=== PATIENT | female | born 1950 | race African-American/Black ===

== ENCOUNTER 2019-06-08 18:34 | Inpatient (IN) | payer MEDICARE, MEDICAID ==
[~2019-06-08] VITALS: Ht 149.9 cm; Wt 56.2 kg
--- NOTE | 2019-06-08 18:30 | NUR ---
Admitted from [facility] for cervical decompression and cervical stenosis. In stable condition with pain rated as 9/10 over neck area, informed Dr Rosa Gregory said OK to continue Oxycodone 10 mg 4HPRN. Patient not in any form of distress. Oriented to unit and therapy. Dr Kathrin Villalpando informed about admission and ordered to continue previous medications and ordered BMP and CBC.
[2019-06-08] MEDS ORDERED: MAGNESIUM HYDROXIDE 30 ML LIQUID UDC PO PRN (19:00)
[2019-06-08] MEDS ORDERED: Z GUARD REMEDY PASTE 57 GM TUBE TOP PRN (19:00)
[2019-06-08] MEDS ORDERED: ASCO500T10 PO (19:21)
[2019-06-08] MEDS ORDERED: DIFL5DRO OP (19:21)
[2019-06-08] MEDS ORDERED: FOLI1TAB16 PO (19:21)
[2019-06-08] MEDS ORDERED: FLUT9.9S NS (19:21)
[2019-06-08] MEDS ORDERED: MIRT15TA7 PO (19:21)
[2019-06-08] MEDS ORDERED: LATA2.5D2 RIGHTEYE (19:21)
[2019-06-08] MEDS ORDERED: HYDR-4354 PO (19:21)
[2019-06-08] MEDS ORDERED: LIDO30AD10 TD (19:21)
[2019-06-08] MEDS ORDERED: METH500T6 PO (19:21)
[2019-06-08] MEDS ORDERED: OFLO5DRO3 RIGHTEYE (19:21)
[2019-06-08] MEDS ORDERED: ALEN70TA3 PO (19:21)
[2019-06-08] MEDS ORDERED: HYDR200T81 PO (19:21)
[2019-06-08] MEDS ORDERED: METH5TAB6 PO (19:21)
[2019-06-08] MEDS ORDERED: BISA-79 PO (19:21)
[2019-06-08] MEDS ORDERED: SOTA80TA26 PO (19:21)
[2019-06-08] MEDS ORDERED: DIAZ2TAB3 PO (19:21)
[2019-06-08] MEDS ORDERED: BUTA-247 PO (19:21)
[2019-06-08] MEDS ORDERED: ALBU18HF2 INH (19:21)
[2019-06-08] MEDS ORDERED: AZEL6DRO5 RIGHTEYE (19:22)
[2019-06-08] MEDS ORDERED: OXYCODONE/APAP 5-325 MG TABLET PO PRN (19:30)
[2019-06-08 20:10] VITALS: BP 93/51
[2019-06-08] MEDS ORDERED: HYDROCODONE/APAP 10-325 MG TABLET PO PRN (20:15)
[2019-06-08] MEDS: OXYCODONE/APAP 5-325 MG TABLET PO PRN (20:54)
[2019-06-09] MEDS ORDERED: MORPHINE SULFATE 2 MG/1 ML DISP.SYRIN IM PRN
--- NOTE | 2019-06-09 04:03 | NUR ---
admitted from [facility] a 68 year old with admitting diagnosis of C5-T3 partial fusion with back decompression. AAOx4. Cervical collar intact. at bedside. Needs attended. VSS. complained of neck pain/back pain 09/07. Percocet 2 tabs given as ordered. will monitor patient for relief. OOB to the BR with walker with supervision.Voiding well. Patient still complains of pain, says Percocet not working. Dr Villalpando(sharepoint solutions architect) notified. Morphine 2mg IM ordered given as directed. Explained to patient that morphine 2mg IM is one time dose only. Patient understood and agreeable to it. Needs attended.
[2019-06-09 05:12] VITALS: BP 103/55
[2019-06-09] MEDS: OXYCODONE/APAP 5-325 MG TABLET PO PRN (06:31)
[2019-06-09 07:09] LABS: BASOPHILS # (AUTO) 0.1 K/uL (0.0-8.0); BASOPHILS % (AUTO) 1.1 % (0.0-2.0); EOSINOPHILS # (AUTO) 0.1 K/uL (0.0-0.7); EOSINOPHILS % (AUTO) 1.9 % (0.0-7.0); HEMATOCRIT 34.6 % (31.2-41.9); HEMOGLOBIN 10.8 g/dL (10.9-14.3); LYMPHOCYTES # (AUTO) 1.7 K/uL (20.0-40.0); LYMPHOCYTES % (AUTO) 22.9 % (20.5-51.5); MEAN CORPUSCULAR HGB CONC 31 g/dL (32.3-35.6); MEAN CORPUSCULAR VOLUME 79.8 fL (75.5-95.3); MONOCYTES % (AUTO) 13.1 % (0.0-11.0); NEUTROPHILS # (AUTO) 4.6 K/uL (1.8-8.9); PLATELET COUNT (AUTO) 133 K/uL (179-408); RED BLOOD CELL COUNT(AUTO) 4.34 MIL/uL (3.63-4.92); WHITE BLOOD COUNT (AUTO) 7.6 K/uL (3.8-11.8)
[2019-06-09 07:13] LABS: CREATININE 0.8 mg/dL (0.6-1.3); POTASSIUM 4.3 mmol/L (3.5-5.1)
[2019-06-09] MEDS ORDERED: DIAZEPAM 2 MG TABLET PO PRN (07:15)
[2019-06-09] MEDS ORDERED: BISACODYL 5 MG TABLET.DR PO PRN (07:15)
[2019-06-09] MEDS ORDERED: HYDROCODONE/APAP 10-325 MG TABLET PO PRN (07:15)
[2019-06-09] MEDS ORDERED: ALBUTEROL SULFATE 8 GM HFA.AER.AD INH PRN (07:15)
[2019-06-09] MEDS ORDERED: HYDROXYCHLOROQUINE SULFATE 200 MG TABLET PO SCH (07:15)
[2019-06-09] MEDS ORDERED: FLUT9.9S NS (07:37)
[2019-06-09] MEDS ORDERED: METHIMAZOLE 5 MG TABLET PO SCH ×2 (09:00→10:41)
[2019-06-09] MEDS ORDERED: MISCELLANEOUS MED RIGHTEYE SCH (09:00)
[2019-06-09] MEDS ORDERED: HOME MED MISCELLANEOUS RIGHTEYE SCH (09:00)
[2019-06-09] MEDS ORDERED: LIDOCAINE 5% PATCH TD SCH (09:00)
[2019-06-09] MEDS ORDERED: MIRTAZAPINE 15 MG TABLET PO SCH (09:00)
[2019-06-09] MEDS ORDERED: ALBUTEROL SULFATE 2.5 MG/3 ML NEBU NEB PRN (09:00)
--- NOTE | 2019-06-09 09:18 | NUR ---
INTERDISCIPLINARY TEAM CONFERENCE
[2019-06-09 09:50] VITALS: BP 97/49
[2019-06-09] MEDS: ASCORBIC ACID 500 MG TABLET PO SCH (10:26)
[2019-06-09] MEDS: FOLIC ACID 1 MG TABLET PO SCH (10:26)
[2019-06-09] MEDS: SOTALOL HCL 80 MG TABLET PO SCH ×2 (10:28→16:55)
[2019-06-09] MEDS: AZELASTINE 0.05% RIGHTEYE SCH ×2 (10:30→16:57)
[2019-06-09] MEDS: OXYCODONE HCL 5 MG TABLET PO PRN ×3 (12:50→21:08)
[2019-06-09] MEDS: HYDROXYCHLOROQUINE SULFATE 200 MG TABLET PO SCH (14:25)
[2019-06-09] MEDS: OPTHALMIC RIGHTEYE SCH ×3 (14:25→21:07)
[2019-06-09] MEDS: OFLOXACIN 0.3% RIGHTEYE SCH ×3 (14:25→21:07)
[2019-06-09] MEDS ORDERED: BISACODYL 10 MG SUPP.RECT RC PRN (15:30)
[2019-06-09] MEDS ORDERED: OXYCODONE HCL 10 MG TAB.SR.12H PO SCH (15:30)
[2019-06-09] MEDS ORDERED: BISACODYL 5 MG TABLET.DR PO ONE (15:30)
[2019-06-09] MEDS: GABAPENTIN 100 MG CAPSULE PO SCH (16:54)
[2019-06-09 17:07] VITALS: BP 121/68
--- NOTE | 2019-06-09 19:30 | NUR ---
Patient received in bed watching TV with at bedside. Alert and oriented x 4. C/O pain upon assessment. Will administer pain medication. Patient C/O constipation. Requesting medication for BM in the morning. to stay the night with patient. Call light and frequently used items within reach. Will Continue to monitor.
[2019-06-09] MEDS: METHOCARBAMOL 500 MG TABLET PO PRN (19:52)
[2019-06-09 19:53] VITALS: BP 116/65
[2019-06-09] MEDS: LATANOPROST OPHT DROP 2.5 ML BOTTLE RIGHTEYE SCH (21:07)
[2019-06-09] MEDS: MORPHINE SULFATE SR 15 MG TABLET.SA PO SCH (21:08)
[2019-06-10] MEDS: OXYCODONE HCL 5 MG TABLET PO PRN ×5 (01:08→21:01)
[2019-06-10 05:08] VITALS: BP 107/64
[2019-06-10] MEDS: BUTALB/ACETAMINOPHEN/CAFFEINE TABLET PO PRN (06:08)
--- NOTE | 2019-06-10 06:26 | NUR ---
Morning temperature noted to be elevated at 101.1. Cooling measures initiated and MD configurator contacted. MD Clark order stat labs and Tylenol to be given. Will endorse to oncoming shift accordingly.
[2019-06-10] MEDS: ACETAMINOPHEN 325 MG TABLET PO PRN ×3 (06:38→19:56)
[2019-06-10 08:00] VITALS: BP 128/56
[2019-06-10] MEDS: SOTALOL HCL 80 MG TABLET PO SCH ×2 (08:02→16:57)
[2019-06-10] MEDS: FOLIC ACID 1 MG TABLET PO SCH (08:02)
[2019-06-10] MEDS: ASCORBIC ACID 500 MG TABLET PO SCH (08:03)
[2019-06-10] MEDS: MORPHINE SULFATE SR 15 MG TABLET.SA PO SCH ×2 (08:03→21:01)
[2019-06-10] MEDS: GABAPENTIN 100 MG CAPSULE PO SCH ×3 (08:03→16:56)
[2019-06-10] MEDS: MIRTAZAPINE 15 MG TABLET PO SCH (08:04)
[2019-06-10] MEDS: HYDROXYCHLOROQUINE SULFATE 200 MG TABLET PO SCH (08:04)
[2019-06-10] MEDS: AZELASTINE 0.05% RIGHTEYE SCH ×2 (08:05→17:00)
[2019-06-10] MEDS: [UNRECOGNIZED DRUG - OTHER] RIGHTEYE SCH (08:06)
[2019-06-10] MEDS: OPTHALMIC EMULSION RIGHTEYE SCH (08:06)
[2019-06-10] MEDS: OFLOXACIN 0.3% RIGHTEYE SCH ×4 (08:06→21:02)
[2019-06-10] MEDS: OPTHALMIC RIGHTEYE SCH ×4 (08:06→21:02)
[2019-06-10 10:22] LABS: *BILIRUBIN,URIN NEGATIVE (NEGATIVE); *BLOOD, URINE NEGATIVE (NEGATIVE); *CLARITY,URINE CLEAR (CLEAR); *COLOR,URINE YELLOW (YELLOW); *KETONES,URINE NEGATIVE (NEGATIVE); *UROBILINOGEN,URINE 0.2 E.U./dl (NORMAL); LEUKOCYTE ESTERASE ,URINE 3+ (NEGATIVE); NITRITE, URINE NEGATIVE (NEGATIVE); UGLUCOSE NEGATIVE (NEGATIVE)
[2019-06-10 10:30] LABS: RBC,URINE 0-3 /HPF (0-3); WBC,URINE 20-50 /HPF (0-3)
[2019-06-10 10:31] LABS: BACTERIA,URINE 1 /HPF (NONE SEEN); SQUAMOUS EPITHELIAL CELL,UR FEW /HPF (NONE SEEN)
[2019-06-10 16:14] VITALS: BP 114/62
--- NOTE | 2019-06-10 18:44 | NUR ---
Urine specimen collected and sent to lab this shift
--- NOTE | 2019-06-10 18:44 | NUR ---
PRN Pain medications given this shift as displayed on Medical record, unable to changed dressing because original dressing noted in place
--- NOTE | 2019-06-10 19:34 | NUR ---
Patient received in bed watching TV with at bedside. Alert and oriented x 4. C/O pain upon assessment. Will administer pain medication. Back dressing original. to stay the night with patient. Call light and frequently used items within reach. Will Continue to monitor. Addendum: 06/10/19 at 2030 by DEBBIE PALOMO RN Temperature noted to be high upon assessment. Tylenol given. Will continue to monitor.
[2019-06-10] MEDS: METHOCARBAMOL 500 MG TABLET PO PRN (19:56)
[2019-06-10 20:41] VITALS: BP 100/58
[2019-06-10] MEDS: LATANOPROST OPHT DROP 2.5 ML BOTTLE RIGHTEYE SCH (21:01)
[2019-06-11] MEDS: ACETAMINOPHEN 325 MG TABLET PO PRN ×3 (06:01→21:03)
[2019-06-11] MEDS: ALENDRONATE SODIUM 70 MG TABLET PO SCH (06:01)
[2019-06-11] MEDS: OXYCODONE HCL 5 MG TABLET PO PRN ×4 (06:02→21:03)
[2019-06-11 06:26] VITALS: BP 109/66
[2019-06-11 07:40] VITALS: BP 96/63
--- NOTE | 2019-06-11 07:47 | NUR ---
Patient noted resting in bed, complaints of pain 10/10, PRN Pain medication given by jazz musician nurse, no signs of distress noted, call light in reach, bed locked and in lowest position, noted room
[2019-06-11] MEDS: GABAPENTIN 100 MG CAPSULE PO SCH ×3 (09:04→17:10)
[2019-06-11] MEDS: MORPHINE SULFATE SR 15 MG TABLET.SA PO SCH ×2 (09:05→21:02)
[2019-06-11] MEDS: HYDROXYCHLOROQUINE SULFATE 200 MG TABLET PO SCH (09:06)
[2019-06-11] MEDS: ASCORBIC ACID 500 MG TABLET PO SCH (09:06)
[2019-06-11] MEDS: FOLIC ACID 1 MG TABLET PO SCH (09:06)
[2019-06-11] MEDS: MIRTAZAPINE 15 MG TABLET PO SCH (09:06)
[2019-06-11] MEDS: SOTALOL HCL 80 MG TABLET PO SCH ×2 (09:07→17:09)
[2019-06-11] MEDS: [UNRECOGNIZED DRUG - OTHER] RIGHTEYE SCH (09:09)
[2019-06-11] MEDS: OPTHALMIC EMULSION RIGHTEYE SCH (09:09)
[2019-06-11] MEDS: AZELASTINE 0.05% RIGHTEYE SCH ×2 (09:09→17:10)
[2019-06-11] MEDS: OPTHALMIC RIGHTEYE SCH ×4 (09:25→21:04)
[2019-06-11] MEDS: OFLOXACIN 0.3% RIGHTEYE SCH ×4 (09:25→21:04)
[2019-06-11] MEDS: METHOCARBAMOL 500 MG TABLET PO PRN ×2 (13:33→19:46)
--- NOTE | 2019-06-11 15:26 | NUR ---
INDIVIDUALIZED OVERALL PLAN OF CARE
[2019-06-11 15:40] VITALS: BP 102/51
--- NOTE | 2019-06-11 19:33 | NUR ---
Patient in bed watching TV with at bedside. Alert and oriented x 4. C/O pain upon assessment. . Will administer pain medication. Back dressing original. to stay the night with patient. Call light and frequently used items within reach. Will Continue to monitor.
[2019-06-11 19:47] VITALS: BP 94/53
[2019-06-11] MEDS: LATANOPROST OPHT DROP 2.5 ML BOTTLE RIGHTEYE SCH (21:03)
--- NOTE | 2019-06-11 21:15 | NUR ---
PRN Tylenol given for low grade fever of 99.7. Will continue to monitor.
[2019-06-12] MEDS: OXYCODONE HCL 5 MG TABLET PO PRN ×4 (01:55→17:10)
[2019-06-12 04:51] VITALS: BP 102/58
--- NOTE | 2019-06-12 07:57 | NUR ---
Patient noted sitting up in bed, complaints of pain 10/10, PRN pain medication given, no signs of distress noted, call light in reach, bed locked and in lowest position, noted at bedside, all needs met
[2019-06-12] MEDS: HYDROXYCHLOROQUINE SULFATE 200 MG TABLET PO SCH ×2 (08:14→21:02)
[2019-06-12] MEDS: FOLIC ACID 1 MG TABLET PO SCH (08:14)
[2019-06-12] MEDS: MORPHINE SULFATE SR 15 MG TABLET.SA PO SCH ×2 (08:14→21:12)
[2019-06-12] MEDS: GABAPENTIN 300 MG CAPSULE PO SCH ×3 (08:15→17:09)
[2019-06-12] MEDS: ASCORBIC ACID 500 MG TABLET PO SCH (08:15)
[2019-06-12] MEDS: METHOCARBAMOL 500 MG TABLET PO PRN ×2 (08:17→17:11)
[2019-06-12] MEDS: MIRTAZAPINE 15 MG TABLET PO SCH (08:17)
[2019-06-12] MEDS: OPTHALMIC EMULSION RIGHTEYE SCH (08:18)
[2019-06-12] MEDS: SOTALOL HCL 80 MG TABLET PO SCH ×2 (08:18→17:10)
[2019-06-12] MEDS: AZELASTINE 0.05% RIGHTEYE SCH ×2 (08:18→17:11)
[2019-06-12] MEDS: [UNRECOGNIZED DRUG - OTHER] RIGHTEYE SCH (08:18)
[2019-06-12] MEDS: OFLOXACIN 0.3% RIGHTEYE SCH ×4 (08:19→21:04)
[2019-06-12] MEDS: OPTHALMIC RIGHTEYE SCH ×4 (08:19→21:04)
[2019-06-12 08:45] VITALS: BP 111/53
--- NOTE | 2019-06-12 19:12 | NUR ---
shower given by Physical therapy, no changes, prn pain medications given at scheduled
[2019-06-12 19:53] VITALS: BP 105/62
[2019-06-12] MEDS: LATANOPROST OPHT DROP 2.5 ML BOTTLE RIGHTEYE SCH (21:03)
--- NOTE | 2019-06-12 21:38 | NUR ---
Received pt in bed, appearing to be asleep but easily arousable to verbal stimuli and light touch. at bedside. No facial indications of pain noted. C-Collar on at all times. All safety measures and fall precautions maintained. Call light and all frequently used items at bedside. Will continue to monitor.
[2019-06-13] MEDS: METHOCARBAMOL 500 MG TABLET PO PRN ×2 (04:27→12:19)
[2019-06-13] MEDS: OXYCODONE HCL 5 MG TABLET PO PRN ×3 (04:29→16:50)
[2019-06-13 05:09] VITALS: BP 100/58
[2019-06-13] MEDS: SOTALOL HCL 80 MG TABLET PO SCH ×2 (08:20→16:53)
[2019-06-13 08:43] VITALS: BP 110/53
[2019-06-13] MEDS: MORPHINE SULFATE SR 15 MG TABLET.SA PO SCH ×2 (08:48→21:20)
[2019-06-13] MEDS: ASCORBIC ACID 500 MG TABLET PO SCH (08:49)
[2019-06-13] MEDS: FOLIC ACID 1 MG TABLET PO SCH (08:49)
[2019-06-13] MEDS: GABAPENTIN 300 MG CAPSULE PO SCH ×2 (08:49→12:19)
[2019-06-13] MEDS: HYDROXYCHLOROQUINE SULFATE 200 MG TABLET PO SCH ×2 (08:50→21:18)
[2019-06-13] MEDS: AZELASTINE 0.05% RIGHTEYE SCH ×2 (08:51→16:52)
[2019-06-13] MEDS: OPTHALMIC EMULSION RIGHTEYE SCH (08:57)
[2019-06-13] MEDS: [UNRECOGNIZED DRUG - OTHER] RIGHTEYE SCH (08:57)
[2019-06-13] MEDS: OPTHALMIC RIGHTEYE SCH (09:00)
[2019-06-13] MEDS: OFLOXACIN 0.3% RIGHTEYE SCH (09:00)
--- NOTE | 2019-06-13 09:00 | NUR ---
Patient is awake, alert, in bed, not in any form of distress. Cervical collar in place. Due medications administered and tolerated well. Complained of neck pain and given PRN pain medication as ordered. at bedside. Assisted with her needs.
[2019-06-13] MEDS: MIRTAZAPINE 15 MG TABLET PO SCH (10:21)
--- NOTE | 2019-06-13 10:30 | NUR ---
Called Dr. Pineda's office (patient's [employer]), clarified regarding Ofloxacin and Durazol eye drops since patient claims that she has to stop using the eyedrops. Per Carlos at Dr. Pineda's office its OK to discontinue Ofloxacin and Durazol eye drops once bottle is empty. Both eyedrops are empty, hence non-administered and will discontinue. Patient and at bedside made aware.
[2019-06-13 16:44] VITALS: BP 143/72
[2019-06-13] MEDS: GABAPENTIN 400 MG CAPSULE PO SCH (16:54)
[2019-06-13] MEDS ORDERED: GABAPENTIN 300 MG CAPSULE PO SCH (17:00)
[2019-06-13] MEDS: ACETAMINOPHEN 325 MG TABLET PO PRN (17:54)
--- NOTE | 2019-06-13 19:15 | NUR ---
Sleeping during initial rounds with head of bed elevated. at bedside. No s/s of respiratory distress noted. No s/s of pain/discomfort. Neck collar in used. No s/s of circulation impairment noted. Continue care as planned.
[2019-06-13 20:53] VITALS: BP 92/51
[2019-06-13 21:20] VITALS: BP 105/60
[2019-06-13] MEDS: LATANOPROST OPHT DROP 2.5 ML BOTTLE RIGHTEYE SCH (21:21)
[2019-06-14] MEDS: OXYCODONE HCL 5 MG TABLET PO PRN ×4 (02:54→17:39)
[2019-06-14 06:51] VITALS: BP 100/47
--- NOTE | 2019-06-14 08:04 | NUR ---
Patient noted sitting up in bed, complaints of pain in neck and arms, prn pain medication given, no signs of distress noted, call light in reach, bed locked and in lowest position, all needs met at this time
[2019-06-14] MEDS: GABAPENTIN 400 MG CAPSULE PO SCH ×3 (08:34→17:37)
[2019-06-14] MEDS: HYDROXYCHLOROQUINE SULFATE 200 MG TABLET PO SCH ×2 (08:34→20:53)
[2019-06-14] MEDS: FOLIC ACID 1 MG TABLET PO SCH (08:34)
[2019-06-14] MEDS: MIRTAZAPINE 15 MG TABLET PO SCH (08:35)
[2019-06-14] MEDS: ASCORBIC ACID 500 MG TABLET PO SCH (08:35)
[2019-06-14] MEDS: MORPHINE SULFATE SR 15 MG TABLET.SA PO SCH ×2 (08:35→21:00)
[2019-06-14] MEDS: SOTALOL HCL 80 MG TABLET PO SCH ×2 (08:38→17:39)
[2019-06-14] MEDS: AZELASTINE 0.05% RIGHTEYE SCH ×2 (08:39→17:39)
[2019-06-14] MEDS: OPTHALMIC EMULSION RIGHTEYE SCH (08:40)
[2019-06-14] MEDS: [UNRECOGNIZED DRUG - OTHER] RIGHTEYE SCH (08:40)
[2019-06-14 09:38] VITALS: BP 86/43
[2019-06-14 16:25] VITALS: BP 105/54
[2019-06-14] MEDS: SULFAMETH/TRIMETH 800/160 MG TABLET PO SCH ×2 (17:37→20:53)
[2019-06-14] MEDS: METHOCARBAMOL 500 MG TABLET PO PRN (17:38)
[2019-06-14] MEDS: ACETAMINOPHEN 325 MG TABLET PO PRN (19:42)
[2019-06-14] MEDS: LATANOPROST OPHT DROP 2.5 ML BOTTLE RIGHTEYE SCH (20:54)
[2019-06-14 20:57] VITALS: BP 88/48
--- NOTE | 2019-06-14 22:52 | NUR ---
Received pt during initial rounds, appearing to be asleep in bed. AAO x 4, no acute distress noted. /primary caregiver at bedside. Denies pain, but does verbalize discomfort around neck area. COUNSELLORS reported temp of 100.5 F oral, PRN Tylenol 650 mg PO given as ordered, tolerated well. Cooling measures implemented. Re-checked temp, noted to be 99.5 F oral. Scheduled morphine 15 mg held due to decreased blood pressure. Encouraged increased fluid intake, pt verbalized understanding. Informed pt that if c/o pain, she has PRN medication available for her. Pt verbalized understanding. All safety measures and fall precautions maintained. Call light and all personal belonging within reach. Will continue to monitor.
--- NOTE | 2019-06-14 23:03 | NUR ---
Cervical collar on at all times.
[2019-06-15 05:00] VITALS: BP 89/48
[2019-06-15] MEDS: ACETAMINOPHEN 325 MG TABLET PO PRN ×2 (05:51→18:08)
[2019-06-15] MEDS: MORPHINE SULFATE SR 15 MG TABLET.SA PO SCH ×3 (05:53→22:00)
--- NOTE | 2019-06-15 05:55 | NUR ---
Scheduled AM morphine 15 mg held due to low bp. Denies N/V, dizziness/lightheadedness. C/O headache, PRN tylenol 650 given as ordered, tolerated well. Noted with temp 99.4 F oral, cooling measures maintained. Pt maintains baseline LOC. Verbalized understanding with information provided. Safety maintained. Call light within reach. Will endorse accordingly to AM shift.
[2019-06-15 07:30] VITALS: BP 85/48
[2019-06-15] MEDS: HYDROXYCHLOROQUINE SULFATE 200 MG TABLET PO SCH ×2 (08:01→22:00)
[2019-06-15] MEDS: FOLIC ACID 1 MG TABLET PO SCH (08:01)
[2019-06-15] MEDS: MIRTAZAPINE 15 MG TABLET PO SCH (08:01)
[2019-06-15] MEDS: ASCORBIC ACID 500 MG TABLET PO SCH (08:02)
[2019-06-15] MEDS: SULFAMETH/TRIMETH 800/160 MG TABLET PO SCH ×2 (08:02→22:00)
[2019-06-15] MEDS: GABAPENTIN 400 MG CAPSULE PO SCH ×3 (08:02→16:28)
[2019-06-15] MEDS: SOTALOL HCL 80 MG TABLET PO SCH ×2 (08:10→16:28)
[2019-06-15] MEDS: AZELASTINE 0.05% RIGHTEYE SCH ×2 (08:21→16:28)
[2019-06-15] MEDS: OPTHALMIC EMULSION RIGHTEYE SCH (08:22)
[2019-06-15] MEDS: [UNRECOGNIZED DRUG - OTHER] RIGHTEYE SCH (08:22)
--- NOTE | 2019-06-15 09:16 | NUR ---
Received patient awake in bed in stable condition. Continue on cervical collar for C5-T3 partial fusion decompression. Continue on pain management with good effect. Monitoring BP for hypotension. Latest 90/53. Continue ATB Bactrim for fever. no adverse reaction noted. not in distress. For FF UP consult of ortho this AM. will continue monitor
--- NOTE | 2019-06-15 10:05 | NUR ---
Patient went out on pass for ortho consult around 940am in stable condition via ambulance with .
--- NOTE | 2019-06-15 12:09 | NUR ---
Patient came back with ff up consult on july, As per , he will do ff up schedule with MD's office.
[2019-06-15] MEDS: OXYCODONE HCL 5 MG TABLET PO PRN ×3 (12:22→23:17)
[2019-06-15] MEDS: BUTALB/ACETAMINOPHEN/CAFFEINE TABLET PO PRN (16:28)
[2019-06-15 16:45] VITALS: BP 117/63
[2019-06-15 20:24] VITALS: BP 97/59
[2019-06-15] MEDS ORDERED: HYDROCODONE/APAP 10-325 MG TABLET PO PRN (21:45)
[2019-06-15] MEDS: LATANOPROST OPHT DROP 2.5 ML BOTTLE RIGHTEYE SCH (21:59)
--- NOTE | 2019-06-15 23:09 | NUR ---
Consulted Judi from outside night pharmacy regarding administration of pain meds for pt due to low BP (97/59, HR 67, RR 19, O2 > 98% on RA) but patient is complaining of severe pain 9-10/10 pain scale at upper back. Per Judi, hold scheduled MS Contin 15 mg, but ok to give PRN Oxyir 10mg PO and monitor BP after administration. Informed pt and patient verbalized understanding. Encouraged increased fluid intake. Safety maintained. Call light within reach. /primary caregiver at bedside. Will continue to monitor.
--- NOTE | 2019-06-16 00:38 | NUR ---
BP rechecked, noted to be 93/48, HR 71, RR 18, O2 98%. Denies n/v, HEBERT, dizziness/lightheadedness, CP, SOB. Encouraged to increase fluid intake throughout the night. Pt verbalized understanding and relief of pain. Safety maintained. Will continue to monitor.
[2019-06-16] MEDS: MORPHINE SULFATE SR 15 MG TABLET.SA PO SCH ×3 (06:11→21:03)
[2019-06-16 06:14] VITALS: BP 104/56
[2019-06-16] MEDS: AZELASTINE 0.05% RIGHTEYE SCH ×2 (08:26→16:40)
[2019-06-16] MEDS: SULFAMETH/TRIMETH 800/160 MG TABLET PO SCH ×2 (08:28→20:13)
[2019-06-16] MEDS: GABAPENTIN 400 MG CAPSULE PO SCH ×3 (08:28→16:39)
[2019-06-16] MEDS: ASCORBIC ACID 500 MG TABLET PO SCH (08:28)
[2019-06-16] MEDS: SOTALOL HCL 80 MG TABLET PO SCH ×2 (08:28→16:39)
[2019-06-16] MEDS: HYDROXYCHLOROQUINE SULFATE 200 MG TABLET PO SCH (08:28)
[2019-06-16] MEDS: OXYCODONE HCL 5 MG TABLET PO PRN ×2 (08:28→17:52)
[2019-06-16] MEDS: FOLIC ACID 1 MG TABLET PO SCH (08:28)
[2019-06-16] MEDS: OPTHALMIC EMULSION RIGHTEYE SCH (08:29)
[2019-06-16] MEDS: [UNRECOGNIZED DRUG - OTHER] RIGHTEYE SCH (08:29)
[2019-06-16 09:20] VITALS: BP 92/54
--- NOTE | 2019-06-16 11:46 | NUR ---
Received patient in stable condition. Continue therapy for ambulation and ADL ability. Continue pain management prior to therapy with good effect. not in distress. Weott 10-325mg every 4 hours PRN given with good effect. will continue monitor
[2019-06-16] MEDS: ACETAMINOPHEN 325 MG TABLET PO PRN ×2 (12:07→20:13)
--- NOTE | 2019-06-16 13:21 | NUR ---
INTERDISCIPLINARY TEAM CONFERENCE
[2019-06-16 16:50] VITALS: BP 104/54
[2019-06-16] MEDS: MIRTAZAPINE 15 MG TABLET PO SCH (17:23)
--- NOTE | 2019-06-16 19:35 | NUR ---
Patient received in bed, AAO x4. Able to make needs known. No acute distress or SOB noted. On room air. Complained of pain on her back, rated 8/10. Physical assessment done. Safety measures observed. Fall precaution maintained. Bed in low position, side rails up x2 for safety, brake and alarm on. call light and personal belongings within reach. Continue to monitor. Addendum: 06/16/19 at 2316 by TULIO WILHELM RN complained of pain on her back of the neck. Her at bedside.
[2019-06-16 19:58] VITALS: BP 97/58
[2019-06-16] MEDS: LATANOPROST OPHT DROP 2.5 ML BOTTLE RIGHTEYE SCH (20:13)
--- NOTE | 2019-06-17 00:15 | NUR ---
On hourly round, assessed the pain. Patient complained of pain on her back of the neck and ask for pain medication. Based on the low BP at the starting shift, rechecked BP: 87/46, HR:73. Consulted with outside pharmacy regarding the administration of Oxycodone 10 mg tab. According to pharmacy ([facility]), the PRN Oxycodone was not administered to the patient. Explained to the patient, she verbalized understanding. Encouraged patient to have more fluid. Continue to monitor.
[2019-06-17] MEDS: MORPHINE SULFATE SR 15 MG TABLET.SA PO SCH ×3 (05:24→21:08)
[2019-06-17 05:45] VITALS: BP 126/77
--- NOTE | 2019-06-17 06:40 | NUR ---
Today morning the BP was normal 126/77. Scheduled Morphine sulfate 15 mg tab was given and tolerated well. Continue to monitor and will endorse to oncoming shift accordingly.
[2019-06-17 06:56] LABS: BASOPHILS # (AUTO) 0.1 K/uL (0.0-8.0); EOSINOPHILS # (AUTO) 0.2 K/uL (0.0-0.7); EOSINOPHILS % (AUTO) 2.8 % (0.0-7.0); HEMATOCRIT 30.3 % (31.2-41.9); HEMOGLOBIN 9.6 g/dL (10.9-14.3); LYMPHOCYTES # (AUTO) 1.1 K/uL (20.0-40.0); LYMPHOCYTES % (AUTO) 18.6 % (20.5-51.5); MEAN CORPUSCULAR HEMOGLOBIN 25.3 uug (24.7-32.8); MEAN CORPUSCULAR HGB CONC 32 g/dL (32.3-35.6); MEAN CORPUSCULAR VOLUME 79.8 fL (75.5-95.3); MONOCYTES # (AUTO) 0.6 K/uL (2.0-10.0); MONOCYTES % (AUTO) 9.9 % (0.0-11.0); NEUTROPHILS # (AUTO) 4.1 K/uL (1.8-8.9); NEUTROPHILS % (AUTO) 67.7 % (38.5-71.5); PLATELET COUNT (AUTO) 254 K/uL (179-408); WHITE BLOOD COUNT (AUTO) 6.1 K/uL (3.8-11.8)
[2019-06-17 07:07] LABS: BILIRUBIN,TOTAL 0.1 mg/dL (0.2-1.0); CREATININE 1.1 mg/dL (0.6-1.3); MAGNESIUM 2.6 mg/dL (1.8-2.4); POTASSIUM 4.9 mmol/L (3.5-5.1); TOTAL PROTEIN, SERUM 6.7 g/dL (6.4-8.2)
[2019-06-17 08:00] VITALS: BP 88/39
[2019-06-17] MEDS: SULFAMETH/TRIMETH 800/160 MG TABLET PO SCH ×2 (09:25→20:27)
[2019-06-17] MEDS: GABAPENTIN 400 MG CAPSULE PO SCH ×3 (09:25→18:44)
[2019-06-17] MEDS: OXYCODONE HCL 5 MG TABLET PO PRN (09:26)
[2019-06-17] MEDS: HYDROXYCHLOROQUINE SULFATE 200 MG TABLET PO SCH (09:26)
[2019-06-17] MEDS: FOLIC ACID 1 MG TABLET PO SCH (09:27)
[2019-06-17] MEDS: ASCORBIC ACID 500 MG TABLET PO SCH (09:27)
[2019-06-17] MEDS: SOTALOL HCL 80 MG TABLET PO SCH ×2 (09:42→17:00)
[2019-06-17] MEDS: AZELASTINE 0.05% RIGHTEYE SCH ×2 (09:43→18:47)
[2019-06-17 16:51] VITALS: BP 98/53
[2019-06-17] MEDS: MIRTAZAPINE 15 MG TABLET PO SCH (18:42)
[2019-06-17] MEDS: LATANOPROST OPHT DROP 2.5 ML BOTTLE RIGHTEYE SCH (20:26)
[2019-06-17 20:45] VITALS: BP 91/56
--- NOTE | 2019-06-17 23:38 | NUR ---
aaox4 cervical collar intact on at all times. needs attended. VSS. tolerated po meds well. medicated for pain as ordered. relief noted. OOB to the BR with walker with supervision. Voiding freely. Needs attended. kept comfortable. fall precautions maintained. call jade within reach. siderails up for safety.
[2019-06-18 05:00] VITALS: BP 96/52
[2019-06-18] MEDS: MORPHINE SULFATE SR 15 MG TABLET.SA PO SCH ×3 (05:30→21:14)
[2019-06-18 06:34] LABS: BASOPHILS # (AUTO) 0.1 K/uL (0.0-8.0); BASOPHILS % (AUTO) 1.3 % (0.0-2.0); EOSINOPHILS # (AUTO) 0.1 K/uL (0.0-0.7); EOSINOPHILS % (AUTO) 2.2 % (0.0-7.0); HEMATOCRIT 29.4 % (31.2-41.9); HEMOGLOBIN 9.3 g/dL (10.9-14.3); LYMPHOCYTES # (AUTO) 1.4 K/uL (20.0-40.0); LYMPHOCYTES % (AUTO) 21.7 % (20.5-51.5); MEAN CORPUSCULAR HEMOGLOBIN 25.1 uug (24.7-32.8); MEAN CORPUSCULAR HGB CONC 32 g/dL (32.3-35.6); MEAN CORPUSCULAR VOLUME 79.3 fL (75.5-95.3); MONOCYTES # (AUTO) 0.6 K/uL (2.0-10.0); MONOCYTES % (AUTO) 9.5 % (0.0-11.0); NEUTROPHILS # (AUTO) 4.3 K/uL (1.8-8.9); NEUTROPHILS % (AUTO) 65.3 % (38.5-71.5); PLATELET COUNT (AUTO) 259 K/uL (179-408); RED BLOOD CELL COUNT(AUTO) 3.71 MIL/uL (3.63-4.92); WHITE BLOOD COUNT (AUTO) 6.6 K/uL (3.8-11.8)
[2019-06-18] MEDS: ALENDRONATE SODIUM 70 MG TABLET PO SCH (06:34)
[2019-06-18 08:52] VITALS: BP 96/48
[2019-06-18 08:54] LABS: CREATININE 1.2 mg/dL (0.6-1.3); MAGNESIUM 2.3 mg/dL (1.8-2.4); PHOSPHOROUS 4.8 mg/dL (2.5-4.9)
[2019-06-18] MEDS: SOTALOL HCL 80 MG TABLET PO SCH ×2 (09:00→17:00)
[2019-06-18 09:11] LABS: THYROID STIMULATING HORMONE 0.761 mIU/mL (0.358-3.740)
[2019-06-18] MEDS: SULFAMETH/TRIMETH 800/160 MG TABLET PO SCH ×2 (09:53→21:13)
[2019-06-18] MEDS: HYDROXYCHLOROQUINE SULFATE 200 MG TABLET PO SCH (09:54)
[2019-06-18] MEDS: GABAPENTIN 400 MG CAPSULE PO SCH ×3 (09:55→18:03)
[2019-06-18] MEDS: FOLIC ACID 1 MG TABLET PO SCH (09:56)
[2019-06-18] MEDS: ASCORBIC ACID 500 MG TABLET PO SCH (09:56)
[2019-06-18] MEDS: AZELASTINE 0.05% RIGHTEYE SCH ×2 (09:57→18:03)
[2019-06-18 18:00] VITALS: BP 103/46
[2019-06-18] MEDS: MIRTAZAPINE 15 MG TABLET PO SCH (18:03)
[2019-06-18] MEDS: OXYCODONE HCL 5 MG TABLET PO PRN (18:05)
[2019-06-18] MEDS: ACETAMINOPHEN 325 MG TABLET PO PRN (18:18)
--- NOTE | 2019-06-18 20:11 | NUR ---
Received pt in bed, AAO x 4, resting comfortably watching television. No acute distress noted. Verbally responsive and able to make needs known. C/O pain but per pt, "I'm trying to ignore it until my next schedule pain medication." All safety measures and fall precautions maintained. Call light and all personal belongings within reach. Will continue to monitor.
[2019-06-18 21:12] VITALS: BP 98/52
[2019-06-18] MEDS: LATANOPROST OPHT DROP 2.5 ML BOTTLE RIGHTEYE SCH (21:13)
[2019-06-19 05:00] VITALS: BP 100/47
[2019-06-19] MEDS: MORPHINE SULFATE SR 15 MG TABLET.SA PO SCH ×3 (06:31→22:00)
[2019-06-19 08:12] VITALS: BP 103/50
[2019-06-19] MEDS: ASCORBIC ACID 500 MG TABLET PO SCH (08:32)
[2019-06-19] MEDS: SULFAMETH/TRIMETH 800/160 MG TABLET PO SCH ×2 (08:33→20:24)
[2019-06-19] MEDS: BUTALB/ACETAMINOPHEN/CAFFEINE TABLET PO PRN (08:33)
[2019-06-19] MEDS: GABAPENTIN 400 MG CAPSULE PO SCH ×3 (08:34→17:22)
[2019-06-19] MEDS: FOLIC ACID 1 MG TABLET PO SCH (08:34)
[2019-06-19] MEDS: AZELASTINE 0.05% RIGHTEYE SCH ×2 (08:36→17:22)
[2019-06-19] MEDS: SOTALOL HCL 80 MG TABLET PO SCH ×2 (08:39→17:00)
[2019-06-19] MEDS: HYDROXYCHLOROQUINE SULFATE 200 MG TABLET PO SCH ×2 (08:48→20:23)
[2019-06-19] MEDS: OXYCODONE HCL 5 MG TABLET PO PRN ×2 (13:30→20:24)
[2019-06-19 17:14] VITALS: BP 114/57
[2019-06-19] MEDS: MIRTAZAPINE 15 MG TABLET PO SCH (17:22)
--- NOTE | 2019-06-19 19:30 | NUR ---
Received patient awake and alert in bed with at bedside. Patient is A/Ox4. No signs of acute distress noted. No complaints of SOB. Complains of pain. Safety measures initiated. Bed is low and locked, call light within reach. Will continue to monitor.
[2019-06-19 20:13] VITALS: BP 99/63
[2019-06-19] MEDS: LATANOPROST OPHT DROP 2.5 ML BOTTLE RIGHTEYE SCH (20:25)
--- NOTE | 2019-06-19 23:25 | NUR ---
Did not administer morphine. Patient received oxycodone around 2230 and requested to take scheduled morphine later. Rechecked vitals around 2300 and was 93/53. Informed patient that I would like to hold morphine due to low BP and patient agreed, said that her pain level is okay for now. Let patient know that if needed, she can have oxycodone at 12:30 and patient understood. Neck brace is intact. Will continue to monitor.
[2019-06-20] MEDS: MORPHINE SULFATE SR 15 MG TABLET.SA PO SCH (05:19)
[2019-06-20 05:24] VITALS: BP 97/54
--- NOTE | 2019-06-20 07:16 | NUR ---
Administer morphine 30mg as scheduled, but there were 2 orders because the chimney supervisor brick had to bring the medication because it was all out in the pyxis so it made another order as a one time order.
[2019-06-20 07:50] VITALS: BP 122/66
[2019-06-20] MEDS: FOLIC ACID 1 MG TABLET PO SCH (08:07)
[2019-06-20] MEDS: HYDROXYCHLOROQUINE SULFATE 200 MG TABLET PO SCH (08:07)
[2019-06-20] MEDS: ASCORBIC ACID 500 MG TABLET PO SCH (08:07)
[2019-06-20] MEDS: OXYCODONE HCL 5 MG TABLET PO PRN (08:07)
[2019-06-20] MEDS: SULFAMETH/TRIMETH 800/160 MG TABLET PO SCH (08:08)
[2019-06-20] MEDS: GABAPENTIN 400 MG CAPSULE PO SCH (08:08)
[2019-06-20 08:10] VITALS: BP 122/66
[2019-06-20] MEDS: SOTALOL HCL 80 MG TABLET PO SCH (08:10)
[2019-06-20] MEDS: AZELASTINE 0.05% RIGHTEYE SCH (08:10)
--- NOTE | 2019-06-20 08:30 | NUR ---
Patient awake, alert, not in any form of distress, with neck collar on. Patient complained of neck pain, given PRN pain medication as ordered. at bedside. Informed regarding discharge plan for the day, patient is aware and agreeable. Assisted with her needs
--- NOTE | 2019-06-20 09:59 | NUR ---
Received an order for discharge to home from Dr. Lee.
--- NOTE | 2019-06-20 11:40 | NUR ---
Discharge instructions provided to the patient and with verbalized understanding. Discharge papers signed by and sent home with the patient. All belongings well accounted for. Patient remains alert, oriented x 4, not in any form of acute distress. No complain of any pain or discomfort at this time. Assisted patient to the lobby via wheelchair. Patient picked up by via private.
== END 2019-06-20 11:40 | disposition home or self-care (01) | DRG 560 ==
PROVIDERS: ADMIT Physical Medicine & Rehabilitation Pain Medicine; ATTEND Physical Medicine & Rehabilitation Pain Medicine
DX: Z47.89 Encounter for other orthopedic aftercare (principal); I69.354 Hemiplegia and hemiparesis following cerebral infarction affecting left non-dominant side; N39.0 Urinary tract infection, site not specified; N17.9 Acute kidney failure, unspecified; M48.02 Spinal stenosis, cervical region; M48.04 Spinal stenosis, thoracic region; I10 Essential (primary) hypertension; R20.0 Anesthesia of skin; R20.2 Paresthesia of skin; M32.9 Systemic lupus erythematosus, unspecified; E05.00 Thyrotoxicosis with diffuse goiter without thyrotoxic crisis or storm; M54.2 Cervicalgia; Z91.011 Allergy to milk products; Z88.0 Allergy status to penicillin; Z88.8 Allergy status to other drugs, medicaments and biological substances; Z91.018 Allergy to other foods; Z83.3 Family history of diabetes mellitus; Z82.49 Family history of ischemic heart disease and other diseases of the circulatory system
CPT/HCPCS: 36415; 83735; 84100; 84443; 85025; 85651; 87040; 87077; 87086; 92526; 92610; 97110; 97112; 97116; 97165; 97530; 97535; A4663; J8499